=== PATIENT | female | born 1975 | race Caucasian/White ===

== ENCOUNTER 2022-02-17 10:22 | Inpatient (IN) ==
[2022-02-17] MEDS ORDERED: 0.9 % Sodium Chloride 1,000 ML IVC ONE ×2 (12:22→12:26)
[2022-02-17 12:50] LABS: Eosinophils % 0.2 %
[2022-02-17 12:52] LABS: Basophils # 0.1 K/mcL (0.0-0.2); Basophils % 0.4 %; Hemoglobin 15.6 g/dL (11.5-15.4); Immature Granulocytes % 1.7 % (0-4); Immature Platelets 21.9 % (1.1-6.1); Lymphocytes # 0.9 K/mcL (0.6-4.6); Lymphocytes % 6.7 %; Mean Corpuscular HGB Conc 34.7 g/dL (31.6-35.5); Mean Corpuscular Hemoglobin 28.4 pg (28.0-33.3); Mean Corpuscular Volume 81.8 fL (83.0-100.0); Mean Platelet Volume 12.2 fL (9.4-12.4); Monocytes # 0.7 K/mcL (0.0-1.3); Monocytes % 4.7 %; Red Cell Distribution Width 13.3 % (11.5-14.5); Segmented Neutrophils % 86.3 %; White Blood Count 13.9 K/mcL (4.3-11.1)
[2022-02-17 12:59] LABS: VBG HCO3 26 mEq/L (21-27); VBG PCO2 43 mmHg (41-51); VBG PH 7.39 pH Units (7.32-7.42); VBG PO2 83 mmHg (25-50)
[2022-02-17 13:07] LABS: Platelet Count 69 K/mcL (140-400)
[2022-02-17 13:16] LABS: Albumin/Globulin Ratio 0.9 (1.1-2.2); Bilirubin,Indirect 0.7 mg/dL (0.0-1.0); Bilirubin,Total 1.7 mg/dL (0.3-1.0); Calcium 8.7 mg/dL (8.6-10.3); Globulin 3.5 g/dL (2.4-3.5); Potassium 2.6 mEq/L (3.5-5.1); Total Protein 6.5 g/dL (6.4-8.9)
[2022-02-17 13:25] LABS: Amorphous Sediment,Urine Few per hpf (None-Few); Bacteria,Urine Few per hpf (None-Few); Bilirubin,Urine Negative (Negative); Blood,Urine Small (Negative); Clarity,Urine Ex.Turbid (Clear); Color,Urine Dark-Yellow (Yellow); Glucose,Urine (UA) 200 mg/dL (Normal); Granular Casts,Urine Many per lpf (None Seen); Hyaline Casts,Urine Many per lpf (None Seen); Ketones,Urine Negative (Negative); Leukocyte Esterase,Urine Trace (Negative); Mucus,Urine Few per lpf (None-Few); Nitrite,Urine Negative (Negative); PH,Urine 5.5 pH Units (5.0-8.0); Protein,Urine 30 mg/dL (Neg-Trace); Renal Epithelial Cells,Urine Few per hpf (None-Few); Specific Gravity,Urine 1.018 (1.010-1.025); Squamous Epithelial Cell,Urine Moderate per hpf (None-Few); Transitional Epi Cells,Urine Few per hpf (None-Few); WBC,Urine 30-50 per hpf (0-3); White Blood Cell Casts,Urine Moderate per lpf (None Seen)
[2022-02-17 13:27] LABS: Troponin I 0.04 ng/mL (< 0.04)
[2022-02-17] MEDS ORDERED: Magnesium Sulfate 1 GM/102 ML PIGGYBACK IVPB ONE (13:34)
[2022-02-17 13:37] LABS: Thyroid Stimulating Hormone 1.466 mcIU/mL (0.340-5.600)
[2022-02-17 14:00] LABS: Influenza A PCR Negative (Negative); Influenza B PCR Negative (Negative); Resp. Syncytial Virus PCR Negative (Negative); SARS-CoV-2 by PCR (In House) Negative (Negative)
[2022-02-17] MEDS ORDERED: Azithromycin 500 MG in 0.9 % Sodium Chloride 250 ML IVPB ONE (14:08)
[2022-02-17] MEDS ORDERED: cefTRIAXone 1,000 MG in 0.9 % Sodium Chloride 10 ML IVP ONE (14:08)
[2022-02-17] MEDS ORDERED: Ondansetron ODT 4 MG TAB.RAPDIS SL PRN (17:22)
[2022-02-17] MEDS ORDERED: Naloxone 0.4 MG/ML INJ IVP PRN (17:22)
[2022-02-17] MEDS ORDERED: Mag Hydrox/Al Hydrox/Simeth 30 ML UDC PO PRN (17:22)
[2022-02-17] MEDS ORDERED: MOM Conc 10 ML UD.LIQ PO PRN (17:22)
[2022-02-17] MEDS ORDERED: Melatonin 3 MG TABLET PO PRN (17:22)
[2022-02-17 17:42] LABS: Potassium 2.7 mEq/L (3.5-5.1)
[2022-02-17] MEDS ORDERED: Perflutren Lipid Microsphere 1.3 ML in 0.9 % Sodium Chloride 8.7 ML IVP PRN (17:42)
[2022-02-17] MEDS ORDERED: 0.9 % Sodium Chloride 500 ML IVC ONE (18:30)
[2022-02-17] MEDS: 0.9 % Sodium Chloride 1,000 ML IVC SCH (18:38)
[2022-02-17 20:06] LABS: ABG Base Excess -1 mEq/L (-2 to 3); ABG HCO3 24 mEq/L (21-27); ABG Oxygen Saturation 97 % (95-98); ABG PCO2 40 mmHg (35-45); ABG PH 7.39 pH Units (7.32-7.45); ABG PO2 88 mmHg (85-104); ABG TCO2 25 mEq/L (20-26)
[2022-02-17 22:50] LABS: Calcium 7.4 mg/dL (8.6-10.3); Potassium 2.8 mEq/L (3.5-5.1)
[2022-02-17 23:06] LABS: Troponin I 0.22 ng/mL (< 0.04)
[2022-02-18] MEDS: *HR* Heparin 5,000 UNIT/ML VIAL SQ SCH ×3 (00:35→17:38)
[2022-02-18 02:58] LABS: A.calcoaceticus-baumannii cplx Not Detected (Not Detect); Bacteroides fragilis by PCR Not Detected (Not Detect); Candida albicans by PCR Not Detected (Not Detect); Candida auris by PCR Not Detected (Not Detect); Candida glabrata by PCR Not Detected (Not Detect); Candida krusei by PCR Not Detected (Not Detect); Candida parapsilosis by PCR Not Detected (Not Detect); Candida tropicalis by PCR Not Detected (Not Detect); Crypto. neoformans/gattii PCR Not Detected (Not Detect); Enterobacter cloacae Cmplx PCR Not Detected (Not Detect); Enterobacterales by PCR Not Detected (Not Detect); Enterococcus faecalis by PCR Not Detected (Not Detect); Enterococcus faecium by PCR Not Detected (Not Detect); Escherichia coli by PCR Not Detected (Not Detect); Klebs. pneumoniae group by PCR Not Detected (Not Detect); Klebsiella aerogenes by PCR Not Detected (Not Detect); Klebsiella oxytoca by PCR Not Detected (Not Detect); Proteus by PCR Not Detected (Not Detect); Pseudomonas aeruginosa by PCR Not Detected (Not Detect); Salmonella species by PCR Not Detected (Not Detect); Serratia marcescens by PCR Not Detected (Not Detect); Staph epidermidis by PCR Not Detected (Not Detect); Staph lugdunensis by PCR Not Detected (Not Detect); Staphylococcus aureus by PCR DETECTED (Not Detect); Stenotrophomonas maltophilia Not Detected (Not Detect); Streptococcus agalactiae(B)PCR Not Detected (Not Detect); Streptococcus by PCR Not Detected (Not Detect); Streptococcus pneumoniae PCR Not Detected (Not Detect); Streptococcus pyogenes (A) PCR Not Detected (Not Detect); mecA/C & MREJ (MRSA) Gene Not Detected (Not Detect)
[2022-02-18] MEDS ORDERED: *HR* Enoxaparin 40 MG/0.4 ML SYRINGE SQ SCH (06:00)
[2022-02-18 06:04] LABS: Basophils # 0.1 K/mcL (0.0-0.2); Basophils % 0.7 %; Eosinophils % 0.1 %; Hemoglobin 14.5 g/dL (11.5-15.4); Immature Granulocytes % 2.8 % (0-4); Lymphocytes # 0.6 K/mcL (0.6-4.6); Lymphocytes % 3.6 %; Mean Corpuscular HGB Conc 35.4 g/dL (31.6-35.5); Mean Corpuscular Hemoglobin 28.8 pg (28.0-33.3); Mean Corpuscular Volume 81.3 fL (83.0-100.0); Mean Platelet Volume 12.5 fL (9.4-12.4); Monocytes # 0.8 K/mcL (0.0-1.3); Monocytes % 5.1 %; Neutrophils # 14.3 K/mcL (1.6-8.9); Red Blood Count 5.04 M/mcL (3.82-4.97); Red Cell Distribution Width 13.5 % (11.5-14.5); Segmented Neutrophils % 87.7 %; White Blood Count 16.3 K/mcL (4.3-11.1)
[2022-02-18 06:05] LABS: Platelet Count 95 K/mcL (140-400)
[2022-02-18] MEDS: 0.9 % Sodium Chloride 1,000 ML IVC SCH ×3 (06:20→16:12)
[2022-02-18 06:25] LABS: Estimated Average Glucose 301 mg/dl; Hemoglobin A1C 12.1 %
[2022-02-18 06:28] LABS: Albumin 2.7 g/dL (3.5-5.7); Albumin/Globulin Ratio 0.9 (1.1-2.2); Bilirubin,Direct 1.3 mg/dL (0.0-0.2); Bilirubin,Indirect 0.8 mg/dL (0.0-1.0); Bilirubin,Total 2.1 mg/dL (0.3-1.0); Total Protein 5.7 g/dL (6.4-8.9)
[2022-02-18 07:13] LABS: Troponin I 0.09 ng/mL (< 0.04)
[2022-02-18 07:45] LABS: BUN/Creatinine Ratio 35 (6-26); Blood Urea Nitrogen 30 mg/dL (6-20); Calcium 7.8 mg/dL (8.6-10.3); Carbon Dioxide 20 mEq/L (23-29); Chloride 91 mEq/L (98-107); Glucose 263 mg/dL (70-105); Osmolality,Calculated 279 (280-300); Potassium 2.7 mEq/L (3.5-5.1); Sodium 127 mEq/L (136-145); eGFR For African Americans > 60 (> 60); eGFR For Non-African Americans > 60 (> 60)
[2022-02-18] MEDS ORDERED: D5% in Water 1,000 ML IVC PRN (08:14)
[2022-02-18] MEDS ORDERED: Dextrose 4 GM Chewable Tablets PO PRN ×2 (08:14)
[2022-02-18] MEDS ORDERED: *HR* Dextrose 50 % in Water (Syg) 50 ML SYRINGE IVP PRN (08:14)
[2022-02-18] MEDS ORDERED: Potassium Chloride Elixir 20 MEQ/15 ML UDC PO ONE (08:16)
[2022-02-18] MEDS ORDERED: ALPRAZolam 1 MG TABLET PO PRN (08:18)
[2022-02-18] MEDS: Venlafaxine XR (24 HR) 150 MG CAP.ER.24H PO SCH (08:58)
[2022-02-18] MEDS: levoFLOXacin 750 MG TABLET PO SCH (08:58)
[2022-02-18] MEDS: PARoxetine 20 MG TABLET PO SCH (08:58)
[2022-02-18] MEDS: Acetaminophen 325 MG TABLET PO PRN ×2 (08:58→16:10)
[2022-02-18] MEDS: metroNIDAZOLE 500 MG TABLET PO SCH ×2 (08:58→19:50)
[2022-02-18] MEDS ORDERED: Insulin DETEMIR 100 UNIT/ML X5UNITS SUBQ SCH ×2 (09:00→21:00)
[2022-02-18] MEDS ORDERED: cefTRIAXone 2,000 MG in 0.9 % Sodium Chloride 20 ML IVP SCH (09:00)
[2022-02-18 09:19] LABS: BUN/Creatinine Ratio 33 (6-26); Blood Urea Nitrogen 26 mg/dL (6-20); Calcium 7.7 mg/dL (8.6-10.3); Carbon Dioxide 26 mEq/L (23-29); Chloride 89 mEq/L (98-107); Glucose 327 mg/dL (70-105); Magnesium 2.5 mg/dL (1.6-2.6); Osmolality,Calculated 279 (280-300); Potassium 2.4 mEq/L (3.5-5.1); Sodium 126 mEq/L (136-145); eGFR For African Americans > 60 (> 60); eGFR For Non-African Americans > 60 (> 60)
[2022-02-18] MEDS ORDERED: Gadolinium Contrast Agent (WT Based) IV PRN ×2 (11:46→13:03)
[2022-02-18] MEDS: Insulin LISPRO 300 UNITS/3 ML VIAL SUBQ SCH ×3 (12:30→17:07)
[2022-02-18 14:38] LABS: Uric Acid 4.2 mg/dL (2.3-7.6)
[2022-02-18 14:51] LABS: BUN/Creatinine Ratio 33 (6-26); Blood Urea Nitrogen 22 mg/dL (6-20); Calcium 7.8 mg/dL (8.6-10.3); Carbon Dioxide 28 mEq/L (23-29); Chloride 92 mEq/L (98-107); Glucose 275 mg/dL (70-105); Osmolality,Calculated 275 (280-300); Potassium 2.5 mEq/L (3.5-5.1); Sodium 126 mEq/L (136-145); eGFR For African Americans > 60 (> 60); eGFR For Non-African Americans > 60 (> 60)
[2022-02-18 14:53] LABS: Amphetamine Screen,Urine Negative ng/mL (Cutoff=1000); Barbiturate Screen,Urine Negative ng/mL (Cutoff=200); Benzodiazepines Screen,Urine Positive ng/mL (Cutoff=200); Cannabinoid Screen,Urine Negative ng/mL (Cutoff = 50); Cocaine Screen,Urine Negative ng/mL (Cutoff= 300); Opiate Screen,Urine Negative ng/mL (Cutoff=300); Phencyclidine Screen,Urine Negative ng/mL (Cutoff=25)
[2022-02-18] MEDS: ceFAZolin 2,000 MG in 0.9 % Sodium Chloride 100 ML IVPB SCH (16:15)
[2022-02-18] MEDS ORDERED: cefTRIAXone 1,000 MG in 0.9 % Sodium Chloride 10 ML IVPB SCH (17:00)
[2022-02-18] MEDS ORDERED: Azithromycin 500 MG in 0.9 % Sodium Chloride 250 ML IVPB SCH (17:00)
[2022-02-18 23:20] LABS: BUN/Creatinine Ratio 33 (6-26); Blood Urea Nitrogen 16 mg/dL (6-20); Calcium 7.5 mg/dL (8.6-10.3); Carbon Dioxide 23 mEq/L (23-29); Chloride 95 mEq/L (98-107); Glucose 198 mg/dL (70-105); Osmolality,Calculated 269 (280-300); Potassium 3.9 mEq/L (3.5-5.1); Sodium 126 mEq/L (136-145); eGFR For African Americans > 60 (> 60); eGFR For Non-African Americans > 60 (> 60)
[2022-02-19] MEDS: ceFAZolin 2,000 MG in 0.9 % Sodium Chloride 100 ML IVPB SCH (00:14)
[2022-02-19] MEDS: Acetaminophen 325 MG TABLET PO PRN (01:30)
[2022-02-19] MEDS: 0.9 % Sodium Chloride 1,000 ML IVC SCH ×2 (03:47→14:52)
[2022-02-19 05:49] LABS: Hematocrit 39.5 % (35.3-44.9); Hemoglobin 14.2 g/dL (11.5-15.4); Mean Corpuscular HGB Conc 35.9 g/dL (31.6-35.5); Mean Corpuscular Hemoglobin 28.6 pg (28.0-33.3); Mean Corpuscular Volume 79.6 fL (83.0-100.0); Mean Platelet Volume 11.1 fL (9.4-12.4); Platelet Count 152 K/mcL (140-400); Red Blood Count 4.96 M/mcL (3.82-4.97); Red Cell Distribution Width 13.6 % (11.5-14.5); White Blood Count 18.3 K/mcL (4.3-11.1)
[2022-02-19 06:03] LABS: BUN/Creatinine Ratio 27 (6-26); Blood Urea Nitrogen 14 mg/dL (6-20); Calcium 7.6 mg/dL (8.6-10.3); Carbon Dioxide 26 mEq/L (23-29); Chloride 95 mEq/L (98-107); Glucose 228 mg/dL (70-105); Magnesium 2.2 mg/dL (1.6-2.6); Osmolality,Calculated 274 (280-300); Phosphorous 1.1 mg/dL (2.7-4.5); Sodium 128 mEq/L (136-145); eGFR For African Americans > 60 (> 60); eGFR For Non-African Americans > 60 (> 60)
[2022-02-19] MEDS: *HR* Heparin 5,000 UNIT/ML VIAL SQ SCH ×2 (06:06→17:13)
[2022-02-19] MEDS ORDERED: Nafcillin 2,000 MG in 0.9 % Sodium Chloride Mini Bag 100 ML IVPB SCH (08:19)
[2022-02-19] MEDS ORDERED: Nafcillin 2,000 MG in 0.9 % Sodium Chloride Mini Bag 100 ML IVPB ONE (08:24)
[2022-02-19] MEDS: Insulin LISPRO 300 UNITS/3 ML VIAL SUBQ SCH ×3 (09:39→17:06)
[2022-02-19] MEDS: Venlafaxine XR (24 HR) 150 MG CAP.ER.24H PO SCH (09:42)
[2022-02-19] MEDS: metroNIDAZOLE 500 MG TABLET PO SCH ×2 (09:42→21:41)
[2022-02-19] MEDS: levoFLOXacin 750 MG TABLET PO SCH (09:42)
[2022-02-19] MEDS: PARoxetine 20 MG TABLET PO SCH (09:42)
[2022-02-19] MEDS: SODIUM CHLORIDE 0.9% IVPB SCH (09:50)
[2022-02-19] MEDS: NAFCILLIN IVPB SCH (09:50)
[2022-02-19] MEDS: Insulin DETEMIR 100 UNIT/ML X5UNITS SUBQ SCH ×2 (10:05→21:41)
[2022-02-20] MEDS: *HR* Heparin 5,000 UNIT/ML VIAL SQ SCH (06:44)
[2022-02-20 06:49] LABS: Hematocrit 43.6 % (35.3-44.9); Hemoglobin 15.1 g/dL (11.5-15.4); Mean Corpuscular HGB Conc 34.6 g/dL (31.6-35.5); Mean Corpuscular Hemoglobin 28.6 pg (28.0-33.3); Mean Corpuscular Volume 82.6 fL (83.0-100.0); Mean Platelet Volume 10.4 fL (9.4-12.4); Platelet Count 247 K/mcL (140-400); Red Blood Count 5.28 M/mcL (3.82-4.97); Red Cell Distribution Width 14.4 % (11.5-14.5)
[2022-02-20 07:00] LABS: BUN/Creatinine Ratio 43 (6-26); Blood Urea Nitrogen 17 mg/dL (6-20); Calcium 7.6 mg/dL (8.6-10.3); Carbon Dioxide 23 mEq/L (23-29); Chloride 100 mEq/L (98-107); Glucose 215 mg/dL (70-105); Osmolality,Calculated 280 (280-300); Potassium 3.9 mEq/L (3.5-5.1); Sodium 131 mEq/L (136-145); eGFR For African Americans > 60 (> 60); eGFR For Non-African Americans > 60 (> 60)
[2022-02-20] MEDS: 0.9 % Sodium Chloride 1,000 ML IVC SCH (07:57)
[2022-02-20] MEDS: Insulin LISPRO 300 UNITS/3 ML VIAL SUBQ SCH ×5 (08:02→18:21)
[2022-02-20] MEDS: Venlafaxine XR (24 HR) 150 MG CAP.ER.24H PO SCH (08:53)
[2022-02-20] MEDS: PARoxetine 20 MG TABLET PO SCH (08:53)
[2022-02-20] MEDS: levoFLOXacin 750 MG TABLET PO SCH (08:53)
[2022-02-20] MEDS: Acetaminophen 325 MG TABLET PO PRN (08:53)
[2022-02-20] MEDS: metroNIDAZOLE 500 MG TABLET PO SCH (08:53)
[2022-02-20] MEDS ORDERED: Insulin DETEMIR 100 UNIT/ML X5UNITS SUBQ SCH (09:00)
[2022-02-20] MEDS ORDERED: Insulin LISPRO 300 UNITS/3 ML VIAL SUBQ SCH (09:00)
[2022-02-20] MEDS: SODIUM CHLORIDE 0.9% IVPB SCH (09:03)
[2022-02-20] MEDS: NAFCILLIN IVPB SCH (09:03)
[2022-02-20] MEDS ORDERED: Gadolinium Contrast Agent (WT Based) IV PRN (09:14)
[2022-02-20 11:03] LABS: C-Reactive Protein 135 mg/L (Less than 10)
[2022-02-20] MEDS ORDERED: *HR* LORazepam 2 MG/ML VIAL IVP ONE (11:07)
[2022-02-20] MEDS ORDERED: Lidocaine Viscous Oral Soln 15 ML SOLUTION MM PRN (11:44)
[2022-02-20] MEDS ORDERED: 0.9 % Sodium Chloride 500 ML IVC ONE (11:44)
[2022-02-20 12:06] VITALS: TEMP 97.4
[2022-02-20] MEDS: *HR* FentaNYL (PF) 100 MCG/2 ML VIAL IVP PRN ×3 (12:18→12:22)
[2022-02-20] MEDS: *HR* Midazolam HCl 5 MG/5 ML VIAL IVP PRN ×3 (12:18→12:22)
[2022-02-20] MEDS ORDERED: GADOBUTROL 30 MMOL/30 ML VIAL IVP ONE (13:25)
[2022-02-20] MEDS ORDERED: *HR* Heparin 5,000 UNIT/ML VIAL IVP ONE (16:38)
[2022-02-20] MEDS ORDERED: *HR* Heparin 5,000 UNIT/ML VIAL IVP PRN ×2 (16:38)
[2022-02-20] MEDS ORDERED: Heparin 25,000UNIT/250ML 1/2NS 25,000 UNIT/250 ML IV.SOLN IVC SCH (16:45)
[2022-02-20 17:37] VITALS: BP 124/64; PULSE 119; O2SAT 96
[2022-02-20 17:48] LABS: Hematocrit 43.9 % (35.3-44.9); Mean Corpuscular HGB Conc 34.2 g/dL (31.6-35.5); Mean Corpuscular Hemoglobin 27.9 pg (28.0-33.3); Mean Corpuscular Volume 81.8 fL (83.0-100.0); Platelet Count 255 K/mcL (140-400); Red Blood Count 5.37 M/mcL (3.82-4.97); Red Cell Distribution Width 14.5 % (11.5-14.5); White Blood Count 25.1 K/mcL (4.3-11.1)
[2022-02-20 17:55] LABS: INR 3.5; Prothrombin Time 38.4 Seconds (9.4-12.1)
[2022-02-20 17:58] LABS: Heparin anti-factor XA UFH < 0.04 IU/mL (0.30-0.70)
== END 2022-02-20 18:22 | disposition short-term general hospital (02) | DRG 871 ==
LOC: EMEROOARM 10:22 → 2NENU 10:22 → SUATTDRO 17:48 → 2NNU 19:20
PROVIDERS: ADMIT Student in an Organized Health Care Education/Training Program; ATTEND Family Medicine